=== PATIENT | female | born 1990 | race African-American/Black ===

== ENCOUNTER 2017-01-19 13:44 | Emergency (ER) | payer BC ==
[~2017-01-19] VITALS: Ht 170.2 cm; Wt 60.4 kg
[2017-01-19 13:57] VITALS: BP 123/65
[2017-01-19] MEDS ORDERED: IV NORMAL SALINE 500ML 500 ML IV ONE (14:45)
--- NOTE | 2017-01-19 14:45 | ED.ADGEN ---
Past History Past Medical History: No Pertinent History Past Surgical History: Spleenectomy Alcohol Use: Occasionally Drug Use: None Adult General Chief Complaint Chief Complaint Vomiting, generalized malaise HPI HPI Patient is a 26 year old female who presents with 4 days of generalized malaise , started vomiting yesterday, no blood or biliary vomitus. She reports chills without known fevers, cough, runny nose, sore throat. No ear pain, generalized abdominal pain, no dysuria or increased urinary frequency. Patient is unsure if she is . She has not attempted any symptom controlling medication today. Review of Systems Review of Systems Constitutional: Denies fever Eyes: Denies change in visual acuity, redness, or eye pain [] HENT: Per history of present illness Respiratory: Denies shortness of breath [] Cardiovascular: Denies chest pain GI: Denies bloody stools or diarrhea [] : Denies dysuria or hematuria [] Musculoskeletal: Per history of present illness Integument: Denies rash or skin lesions [] Neurologic: Denies headache, focal weakness or sensory changes [] Current Medications Current Medications Current Medications Medications (Trade) Dose Ordered Sig/Adalberto Start Time Stop Time Status Last Admin Dose Admin Iohexol (Omnipaque 350 Mg/ml) 75 ml 1X ONCE 01/19/17 17:30 01/19/17 17:31 DC Ketorolac Tromethamine (Toradol) 30 mg 1X ONCE 01/19/17 15:00 01/19/17 15:01 DC 01/19/17 15:10 30 MG Ondansetron HCl (Zofran) 4 mg 1X ONCE 01/19/17 15:00 01/19/17 15:01 DC 01/19/17 15:10 4 MG Ondansetron HCl 4 mg 4 mg 1X ONCE 01/19/17 16:00 01/19/17 16:01 DC 01/19/17 16:00 4 MG Sodium Chloride (Iv Sodium Chloride 0.9% 1,000ml) 1,000 ml @ 1,000 mls/hr 1X ONCE 01/19/17 16:00 01/19/17 17:00 DC 01/19/17 16:00 1,000 MLS/HR Sodium Chloride (Iv Sodium Chloride 0.9% 500ml) 500 ml @ 0 mls/hr 1X ONCE 01/19/17 14:45 01/19/17 14:47 DC 01/19/17 15:10 500 MLS/HR Allergies Allergies Allergies Coded Allergies Type Severity Reaction Last Updated Verified Penicillins Allergy Unknown 01/19/17 Yes Physical Exam Physical Exam Constitutional: Well developed, well nourished, ill appearing, non-toxic appearance. [] HENT: Normocephalic, atraumatic, bilateral external ears normal, oropharynx moist, no oral exudates, nose normal. Uvula rises midline, no edema, minimal erythema Eyes: PERRLA, EOMI, conjunctiva normal, no discharge. [] Neck: Normal range of motion, no tenderness, supple, no stridor. [] Cardiovascular:Heart rate regular with regular rhythm, no murmur [] Lungs & Thorax: Bilateral breath sounds clear to auscultation, no wheezes, crackles or rhonchi Abdomen: Bowel sounds normal, soft, fusion on focal tenderness to palpation without guarding or peritoneal signs, Skin: Warm, dry, no erythema, no rash. [] Back: No tenderness, no CVA tenderness. [] Extremities: No tenderness, no cyanosis, no clubbing, ROM intact, no edema. [] Neurologic: Alert and oriented X 3, normal motor function, normal sensory function, no focal deficits noted. [] Psychologic: Affect normal, judgement normal, mood normal. [] Current Patient Data Vital Signs Vital Signs Date Time Temp Pulse Resp B/P Pulse Ox O2 Delivery O2 Flow Rate FiO2 01/19/17 13:57 97.7 102 20 99 Room Air Lab Results Laboratory Tests Test 01/19/17 14:35 01/19/17 14:58 01/19/17 16:55 Urine Collection Type Unknown Urine Color Yellow Urine Clarity Cloudy Urine pH 7.0 Urine Specific [place] 1.020 Urine Protein 30 mg/dl (NEG-TRACE) Urine Glucose (UA) Negmg/dL (NEG) Urine Ketones (Stick) >=160mg/dL (NEG) Urine Blood Trace (NEG) Urine Nitrite Neg (NEG) Urine Bilirubin Small (NEG) Urine Urobilinogen Dipstick 1mg/dL (0.2 mg/dL) Urine Leukocyte Esterase Neg (NEG) POC Urine HCG, Qualitative hcg negative (Negative) White Blood Count 13.4x10^3/uL (4.0-11.0) H Red Blood Count 4.93x10^6/uL (3.50-5.40) Hemoglobin 14.8g/dL (12.0-15.5) Hematocrit 45.0% (36.0-47.0) Mean Corpuscular Volume 91fL (79-100) Mean Corpuscular Hemoglobin 30pg (25-35) Mean Corpuscular Hemoglobin Concent 33g/dL (31-37) Red Cell Distribution Width 12.9% (11.5-14.5) Platelet Count 397x10^3/uL (140-400) Neutrophils (%) (Auto) % (31-73) Lymphocytes (%) (Auto) % (24-48) Monocytes (%) (Auto) % (0-9) Eosinophils (%) (Auto) % (0-3) Basophils (%) (Auto) % (0-3) Neutrophils # (Auto) x10^3uL (1.8-7.7) Lymphocytes # (Auto) x10^3/uL (1.0-4.8) Monocytes # (Auto) x10^3/uL (0.0-1.1) Eosinophils # (Auto) x10^3/uL (0.0-0.7) Basophils # (Auto) x10^3/uL (0.0-0.2) Segmented Neutrophils % 96% (35-66) H Band Neutrophils % 1% (0-9) Lymphocytes % 1% (24-48) L Monocytes % 2% (0-10) Platelet Estimate Adequate (ADEQUATE) Sodium Level 137mmol/L (136-145) Potassium Level 3.8mmol/L (3.5-5.1) Chloride Level 101mmol/L (98-107) Carbon Dioxide Level 26mmol/L (21-32) Anion Gap 10 (6-14) Blood Urea Nitrogen 11mg/dL (7-20) Creatinine 0.8mg/dL (0.6-1.0) Estimated GFR (Cockcroft-Gault) 103.3 BUN/Creatinine Ratio 14 (6-20) Glucose Level 89mg/dL (70-99) Calcium Level 9.5mg/dL (8.5-10.1) Total Bilirubin 2.1mg/dL (0.2-1.0) H Aspartate Amino Transferase (AST) 19U/L (15-37) Alanine Aminotransferase (ALT) 26U/L (14-59) Alkaline Phosphatase 70U/L (46-116) Total Protein 8.5g/dL (6.4-8.2) H Albumin 4.5g/dL (3.4-5.0) Albumin/Globulin Ratio 1.1 (1.0-1.7) Lipase 101U/L (73-393) Influenza Type A (Rapid) Positive (NEGATIVE) Influenza Type B (Rapid) Negative (NEGATIVE) EKG EKG [] Radiology/Procedures Radiology/Procedures US abdomen: Limited abdomen ultrasound study of the right upper quadrant Clinical indications: Right upper quadrant pain nausea and vomiting for one day. Elevated bilirubin Findings: The pancreas is homogeneous without focal enlargement. The intrahepatic portion of the IVC is distended measuring up to 25 mm. The gallbladder is normal without gallstones and the gallbladder is not distended. Extrahepatic bile duct measures 3.7 mm in caliber which is normal. The liver is homogeneous and no mass is seen. The liver measures 13.1 cm in length which is normal. The length of the right kidney is 11.3 cm. No hydronephrosis or renal mass or perinephric fluid collection is seen on this side. IMPRESSION: Normal sonographic evaluation of the gallbladder and biliary tree. Dilation of the intrahepatic portion of the IVC. This may be related to patient's increased fluid status unless there is a history of right-sided heart failure. Course & Med Decision Making Course & Med Decision Making Pertinent Labs and Imaging studies reviewed. (See chart for details) Patient given IV fluids, Zofran and Toradol. Urine test negative, lab work pending, urinalysis shows dehydration without signs of infection. Pt still nausea, additional fluids and zofran given. US negative for cause. Flu added. CT abd/pelvis ordered. Still not able to tolerate fluids. Will admit Care transferred to Dr. Go pending CT abd/pelvis. Final Impression Final Impression Nausea and vomiting Influenza [] Problems: Dragon Disclaimer Dragon Disclaimer This electronic medical record was generated, in whole or in part, using a voice recognition dictation system. GLENNA GUNDERSON MD Jan 19, 2017 14:45
[2017-01-19] MEDS ORDERED: ONDANSETRON PF 4 MG/2 ML VIAL. IV ONE ×2 (15:00→16:00)
[2017-01-19] MEDS ORDERED: KETOROLAC 30 MG/ML VIAL. IV ONE (15:00)
[2017-01-19 15:10] LABS: HEMOGLOBIN 14.8 g/dL (12.0-15.5); MEAN CORPUSCULAR HEMOGLOBIN 30 pg (25-35); MEAN CORPUSCULAR HGB CONC 33 g/dL (31-37); MEAN CORPUSCULAR VOLUME 91 fL (79-100); PLATELET COUNT 397 x10^3/uL (140-400); RED BLOOD COUNT 4.93 x10^6/uL (3.50-5.40); RED CELL DISTRIBUTION WIDTH 12.9 % (11.5-14.5); WHITE BLOOD COUNT 13.4 x10^3/uL (4.0-11.0)
[2017-01-19 15:19] LABS: ALBUMIN 4.5 g/dL (3.4-5.0); ALBUMIN/GLOBULIN RATIO 1.1 (1.0-1.7); CALCIUM 9.5 mg/dL (8.5-10.1); CREATININE 0.8 mg/dL (0.6-1.0); GFR 103.3; POTASSIUM 3.8 mmol/L (3.5-5.1); TOTAL PROTEIN 8.5 g/dL (6.4-8.2)
[2017-01-19 15:20] LABS: TOTAL BILIRUBIN 2.1 mg/dL (0.2-1.0)
[2017-01-19 15:28] LABS: % BANDS 1 % (0-9); % LYMPHS 1 % (24-48); % MONOS 2 % (0-10); % SEGS 96 % (35-66); PLT ESTIMATE ADEQUATE (ADEQUATE)
[2017-01-19 15:42] LABS: CLARITY,URINE CLOUDY; COLOR,URINE YELLOW
[2017-01-19 15:43] LABS: BILIRUBIN,URINE SMALL (NEG); GLUCOSE,URINE NEG (NEG); NITRITE,URINE NEG (NEG); UROBILINOGEN,URINE 1 mg/dL (0.2 mg/dL)
[2017-01-19] MEDS ORDERED: IV NORMAL SALINE 1,000ML 1,000 ML IV ONE (16:00)
--- NOTE | 2017-01-19 16:47 | RAD ---
Limited abdomen ultrasound study of the right upper quadrant Clinical indications: Right upper quadrant pain nausea and vomiting for one day. Elevated bilirubin Findings: The pancreas is homogeneous without focal enlargement. The intrahepatic portion of the IVC is distended measuring up to 25 mm. The gallbladder is normal without gallstones and the gallbladder is not distended. Extrahepatic bile duct measures 3.7 mm in caliber which is normal. The liver is homogeneous and no mass is seen. The liver measures 13.1 cm in length which is normal. The length of the right kidney is 11.3 cm. No hydronephrosis or renal mass or perinephric fluid collection is seen on this side. IMPRESSION: Normal sonographic evaluation of the gallbladder and biliary tree. Dilation of the intrahepatic portion of the IVC. This may be related to patient's increased fluid status unless there is a history of right-sided heart failure.
--- NOTE | 2017-01-19 17:03 | ACF ---
Admission Criteria Forms VOMITING Clinical Indications for Admission to Inpatient Care ( Place 'X' for any and all applicable criteria): Admission is indicated for 1 or more of the following(1)(2)(3): [ ]I. Complete or partial gastrointestinal obstruction [ ]II. Vomiting due to significant metabolic derangement (eg, severe hypercalcemia, diabetic ketoacidosis) [ ]III. Other cause of vomiting requiring hospitalization (eg, poisoning, increased intracranial pressure) [X]IV. Inpatient admission required rather than observation care because of 1 or more of the following [ ]i) Hemodynamic instability [ ]ii) Vomiting that is severe or persistent indicated by 1 or more of the following 1) Numerous episodes of vomiting in past 24hours (eg, every 1 to 2 hours) 2) Suggests severe underlying cause or complication (eg , projectile, feculent, bilious, coffee ground, bloody) 3) Appropriate antiemetic treatment (eg, repeated oral or parenteral dosing) does not sufficiently reduce vomiting within 12 to 24 hours of treatment 4) Treatment regimen necessary to adequately control vomiting requires inpatient level of care (eg, not immediately available in outpatient setting) [ ]iii) Severe electrolyte abnormalities requiring inpatient care [ ]iv) Severe pain requiring acute inpatient management( Continuous or frequent (eg, every 2 to 4 hours) parental analgesics or analgesic regimen that can only be performed or initiated in inpatient setting) [ ]v) High fever or infection requiring inpatient admission as indicated by 1 or more of the following(7)(8): [ ]1) Appropriate outpatient or observation care antimicrobial treatment unavailable, not effective, or not feasible [ ]2) Documented bacteremia [ ]3) Temp >104.9 degrees F (40.5 degrees C) (oral) [ ]4) Temp >103.1 degrees F (39.5 C) (oral) or <96.8 degrees F (36 C) (rectal) that does not respond to all emergency treatment measures [ ]vi) Acute renal failure [ ]vii) IV fluid required rather than oral rehydration to replace significant on going losses (greater than 3 L/m2 per day) [ ]viii) Parenteral nutrition regimen that must be implemented on inpatient basis [X]ix) Other condition, treatment or monitoring requiring inpatient admission Extended stay beyond goal length of stay may be needed for(1)(4): [ ]a) Severe vomiting [ ]b) Persistent vomiting, vital sign changes, severe electrolyte imbalance , or diagnosed cause of vomiting that requires continued hospitalization (eg, gastrointestinal obstruction , increased intracranial pressure) [ ]c) Surgery to treat identified causes of vomiting (eg, bowel obstruction , intracranial process) [ ]d) Comorbid illness that requires inpatient care (eg, acute heart failure , renal failure) [ ]e) Need for inpatient endoscopy The original [facility] content created by elicit has been revised. The portions of the content which have been revised are identified through the use of italic text or in bold, and [facility] has neither reviewed nor approved the modified material. All other unmodified content is copyright [facility]. Please see references footnoted in the original [facility] edition 2016 Admission Criteria Met?: Yes ALFREDO JAMES Jan 19, 2017 17:02
[2017-01-19 17:24] LABS: INFLUENZA A PATIENT POSITIVE (NEGATIVE); INFLUENZA B PATIENT NEGATIVE (NEGATIVE)
[2017-01-19] MEDS ORDERED: IOHEXOL 350 MG/ML 50 ML VIAL. IV ONE (17:30)
--- NOTE | 2017-01-19 18:26 | RAD ---
PROCEDURE CT abdomen pelvis with contrast. HISTORY Abdominal pain and vomiting. TECHNIQUE Helical CT imaging of the abdomen and pelvis is performed after 75 cc Omnipaque 300 IV contrast. Oral contrast not given. PQRS: One or more the following individualized dose reduction techniques were utilized for the study: 1. Automated exposure control. 2. Adjustment of the mA and/or kV according to patient size. 3. Use of iterative reconstruction technique. COMPARISON None. FINDINGS Cardiac size normal. Lung bases clear. The spleen is not identified. Liver, gallbladder, pancreas, adrenal glands, and abdominal aortic caliber are normal. Kidneys enhance symmetrically, no hydronephrosis. 0.6 cm left upper pole renal cyst. There are multiple upper limits of normal in size mesenteric lymph nodes. Evaluation of bowel may be limited without oral contrast. Stomach unremarkable. There is no dilated small bowel. No colon wall thickening is appreciated. The appendix is normal. There is pelvic free fluid. Question arcuate uterus. There are bilateral functional cysts of the ovaries on the right measures 1.3 cm, on the left 2.5 cm. Urinary bladder is normal. No acute bone abnormality. IMPRESSION 1. Multiple upper limits of normal in size mesenteric lymph nodes. Mesenteric adenitis a consideration. 2. The spleen is not identified may be congenitally or surgically absent. 3. There is pelvic free fluid and there are small bilateral ovary functional cysts. Findings are probably physiologic. 4. The appendix is normal. Electronically signed by: Kirit Osman MD (Jan 19, 2017 18:24:44)
== END 2017-01-19 20:05 | disposition home or self-care (01) ==
LOC: ER 13:44
DX: J09.X2 Influenza due to identified novel influenza A virus with other respiratory manifestations (principal); R11.2 Nausea with vomiting, unspecified; E86.0 Dehydration; Z88.0 Allergy status to penicillin
CPT/HCPCS: 36415; 74177; 76705; 80053; 81003; 83690; 84703; 85007; 85027; 87804; 96361; 96374; 96375; 96376; 99285; J1885; J2405; J7040; 81025; J7030

== ENCOUNTER 2017-09-29 14:30 | Emergency (ER) | payer SELFPAY ==
[~2017-09-29] VITALS: Ht 170.2 cm; Wt 58.1 kg
[2017-09-29] MEDS ORDERED: IV NORMAL SALINE 1,000ML 1,000 ML IV SCH (14:52)
[2017-09-29] MEDS ORDERED: ONDANSETRON PF 4 MG/2 ML VIAL. IV ONE (15:15)
[2017-09-29 15:21] LABS: BASO # 0.1 x10^3/uL (0.0-0.2); BASO % 1 % (0-3); EOS % 0 % (0-3); HEMATOCRIT 37.4 % (36.0-47.0); HEMOGLOBIN 12.7 g/dL (12.0-15.5); LYMPH # 1.1 x10^3/uL (1.0-4.8); LYMPH % 6 % (24-48); MEAN CORPUSCULAR HEMOGLOBIN 31 pg (25-35); MEAN CORPUSCULAR HGB CONC 34 g/dL (31-37); MEAN CORPUSCULAR VOLUME 92 fL (79-100); MONO # 0.9 x10^3/uL (0.0-1.1); MONO % 5 % (0-9); NEUT # 16.6 x10^3uL (1.8-7.7); NEUT % 89 % (31-73); PLATELET COUNT 356 x10^3/uL (140-400); RED BLOOD COUNT 4.07 x10^6/uL (3.50-5.40); RED CELL DISTRIBUTION WIDTH 13.3 % (11.5-14.5); WHITE BLOOD COUNT 18.7 x10^3/uL (4.0-11.0)
[2017-09-29 15:31] LABS: PREG TEST PT QUAL NEGATIVE (NEG)
[2017-09-29 15:34] LABS: ALBUMIN 4.2 g/dL (3.4-5.0); CALCIUM 9.5 mg/dL (8.5-10.1); CREATININE 0.8 mg/dL (0.6-1.0); GFR 102.6; POTASSIUM 3.2 mmol/L (3.5-5.1); TOTAL PROTEIN 8.3 g/dL (6.4-8.2)
[2017-09-29] MEDS ORDERED: IOHEXOL 240 MG/ML 50ML VIAL. ONE (15:35)
[2017-09-29] MEDS ORDERED: CONTRAST GIVEN MC PRN (15:45)
[2017-09-29] MEDS ORDERED: IOHEXOL 300 MG/ML 75 ML VIAL. IV ONE (16:00)
[2017-09-29 16:56] LABS: BARBITURATES NEG (NEG); BENZODIAZEPINES NEG (NEG); CANNABINOIDS POS (NEG); COCAINE NEG (NEG); METHADONE NEG (NEG); OPIATES NEG (NEG); PHENCYCLIDINE NEG (NEG)
[2017-09-29 16:57] LABS: AMPHETAMINE/METHAMPHETAMINE NEG (NEG)
--- NOTE | 2017-09-29 17:01 | RAD ---
CT scan of the abdomen and pelvis with contrast 09/29/2017 Clinical history: Diffuse abdominal pain. Technique: After the oral and intravenous administration contrast, contiguous, 5 mm axial sections were obtained through the abdomen and pelvis. 58 cc of Omnipaque 300 were administered intravenously during this examination. One or more of the following individualized dose reduction techniques were utilized for this study: 1. Automated exposure control. 2. Adjustment of the mA and/or kV according to patient size. 3. Use of iterative reconstruction technique. Findings: Comparison study is dated 01/19/2017. Images through the lung bases are within normal limits. The liver, pancreas, adrenal glands and kidneys are within normal limits. The spleen is not visualized. It may be congenitally or surgically absent. The abdominal aorta tapers normally. The gallbladder is contracted. No free fluid or free air is seen within the abdomen. There is no evidence of bowel obstruction. Air and stool is seen throughout the colon. The cecum extends into the pelvis. The appendix is partially visualized and is within normal limits. Images through the pelvis demonstrate the urinary bladder distended with urine. The uterus is within normal limits. Follicles are seen involving both ovaries. Small amount of free fluid is seen within the pelvis. Minimal S shaped curvature of the thoracolumbar spine is seen. Impression: Small amount of free fluid is seen within the pelvis. No additional acute abnormality is seen.
[2017-09-29 17:04] LABS: COLOR,URINE AMBER
[2017-09-29 17:05] LABS: BACTERIA,URINE FEW /HPF (0-FEW); BILIRUBIN,URINE NEG (NEG); CLARITY,URINE HAZY; NITRITE,URINE POS (NEG); SQUAMOUS EPITHELIAL CELL,UR MANY /LPF
[2017-09-29] MEDS ORDERED: cefTRIAXone SODIUM 1 GM VIAL IV ONE (17:40)
[2017-09-29] MEDS ORDERED: IV NORMAL SALINE 50ML 50 ML ONE (17:40)
[2017-09-29] MEDS: KETOROLAC 30 MG/ML VIAL. IV ONE ×2 (17:45→17:47)
[2017-09-29] MEDS ORDERED: cefTRIAXone IM 1 GM VIAL IM ONE (18:15)
[2017-09-29] MEDS ORDERED: KETOROLAC 60 MG/2 ML VIAL. IM ONE (18:15)
[2017-09-29] MEDS ORDERED: ACET-704 PO (18:20)
[2017-09-29] MEDS ORDERED: ONDA4TAB10 PO (18:20)
[2017-09-29] MEDS ORDERED: CIPR250T30 PO (18:20)
--- NOTE | 2017-09-29 18:20 | PHYS DOC ---
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 Patient denies radiation of her pain and rated her pain 9/10. Patient complaining of nausea and states she had 2 episodes of vomiting today. Patient states she did not have any bowel movement today but yesterday had 2 normal bowel movement without diarrhea. Patient denies urinary symptom, fever and chills, abdominal distention, vaginal bleeding or discharge. Patient was seen by a clinic today and sent to ER for more evaluation. Review of Systems Review of Systems Constitutional: Denies fever or chills [] Eyes: Denies change in visual acuity, redness, or eye pain [] HENT: Denies nasal congestion or sore throat [] Respiratory: Denies cough or shortness of breath [] Cardiovascular: No additional information not addressed in HPI [] GI: Reports abdominal pain, nausea, vomiting : Denies dysuria or hematuria [] Musculoskeletal: Denies back pain or joint pain [] Integument: Denies rash or skin lesions [] Neurologic: Denies headache, focal weakness or sensory changes [] Endocrine: Denies polyuria or polydipsia [] All other systems were reviewed and found to be within normal limits, except as documented in this note. Current Medications Current Medications Current Medications Medications (Trade) Dose Ordered Sig/Adalberto Start Time Stop Time Status Last Admin Dose Admin Ceftriaxone Sodium 1 gm/ Sodium Chloride 50 ml @ 100 mls/hr 1X ONCE 09/29/17 17:45 09/29/17 18:14 Ceftriaxone Sodium (Rocephin Im) 1 gm 1X ONCE 09/29/17 18:15 09/29/17 18:16 Ceftriaxone Sodium (Rocephin) 1 gm STK-MED ONCE 09/29/17 17:40 09/29/17 17:41 DC Fentanyl Citrate (Fentanyl 2ml Vial) 50 mcg 1X ONCE 09/29/17 15:50 09/29/17 15:51 DC 09/29/17 16:15 50 MCG Info (Do NOT chart on this entry -- for MONITORING) 1 each PRN DAILY PRN 09/29/17 15:45 10/01/17 15:44 Iohexol (Omnipaque 240 Mg/ml) 50 ml STK-MED ONCE 09/29/17 15:35 09/29/17 15:36 DC Iohexol (Omnipaque 300 Mg/ml) 75 ml 1X ONCE 09/29/17 16:00 09/29/17 16:01 DC 09/29/17 16:39 75 ML Ketorolac Tromethamine (Toradol) 60 mg 1X ONCE 09/29/17 18:15 09/29/17 18:16 Ondansetron HCl (Zofran) 4 mg 1X ONCE 09/29/17 15:15 09/29/17 15:16 DC 09/29/17 15:07 4 MG Sodium Chloride 50 ml @ As Directed STK-MED ONCE 09/29/17 17:40 09/29/17 17:41 DC Allergies Allergies Allergies Coded Allergies Type Severity Reaction Last Updated Verified Penicillins Allergy Unknown 01/19/17 Yes Physical Exam Physical Exam Constitutional: Moderate distress, non-toxic appearance, very anxious HENT: Normocephalic, atraumatic, bilateral external ears normal, oropharynx moist, no oral exudates, nose normal. [] Eyes: PERRLA, EOMI, conjunctiva normal, no discharge. [] Neck: Normal range of motion, no tenderness, supple, no stridor. [] Cardiovascular:Heart rate regular rhythm, no murmur [] Lungs & Thorax: Bilateral breath sounds clear to auscultation [] Abdomen: Bowel sounds normal, soft, no tenderness, guarding ,no masses, no pulsatile masses. [] Skin: Warm, dry, no erythema, no rash. [] Back: No tenderness, no CVA tenderness. [] Extremities: No tenderness, no cyanosis, no clubbing, ROM intact, no edema. [] Neurologic: Alert and oriented X 3, normal motor function, normal sensory function, no focal deficits noted. [] Psychologic: Affect normal, judgement normal, anxious Current Patient Data Vital Signs Vital Signs Date Time Temp Pulse Resp B/P (MAP) Pulse Ox O2 Delivery O2 Flow Rate FiO2 09/29/17 16:15 16 100 Room Air Lab Results Laboratory Tests Test 09/29/17 15:09 09/29/17 15:46 09/29/17 17:09 White Blood Count 18.7 x10^3/uL (4.0-11.0) H Red Blood Count 4.07 x10^6/uL (3.50-5.40) Hemoglobin 12.7 g/dL (12.0-15.5) Hematocrit 37.4 % (36.0-47.0) Mean Corpuscular Volume 92 fL (79-100) Mean Corpuscular Hemoglobin 31 pg (25-35) Mean Corpuscular Hemoglobin Concent 34 g/dL (31-37) Red Cell Distribution Width 13.3 % (11.5-14.5) Platelet Count 356 x10^3/uL (140-400) Neutrophils (%) (Auto) 89 % (31-73) H Lymphocytes (%) (Auto) 6 % (24-48) L Monocytes (%) (Auto) 5 % (0-9) Eosinophils (%) (Auto) 0 % (0-3) Basophils (%) (Auto) 1 % (0-3) Neutrophils # (Auto) 16.6 x10^3uL (1.8-7.7) H Lymphocytes # (Auto) 1.1 x10^3/uL (1.0-4.8) Monocytes # (Auto) 0.9 x10^3/uL (0.0-1.1) Eosinophils # (Auto) 0.0 x10^3/uL (0.0-0.7) Basophils # (Auto) 0.1 x10^3/uL (0.0-0.2) Platelet Estimate Pending Sodium Level 139 mmol/L (136-145) Potassium Level 3.2 mmol/L (3.5-5.1) L Chloride Level 102 mmol/L (98-107) Carbon Dioxide Level 25 mmol/L (21-32) Anion Gap 12 (6-14) Blood Urea Nitrogen 7 mg/dL (7-20) Creatinine 0.8 mg/dL (0.6-1.0) Estimated GFR (Cockcroft-Gault) 102.6 BUN/Creatinine Ratio 9 (6-20) Glucose Level 75 mg/dL (70-99) Calcium Level 9.5 mg/dL (8.5-10.1) Total Bilirubin 2.0 mg/dL (0.2-1.0) H Aspartate Amino Transferase (AST) 19 U/L (15-37) Alanine Aminotransferase (ALT) 30 U/L (14-59) Alkaline Phosphatase 61 U/L (46-116) Total Protein 8.3 g/dL (6.4-8.2) H Albumin 4.2 g/dL (3.4-5.0) Albumin/Globulin Ratio 1.0 (1.0-1.7) Lipase 52 U/L (73-393) L Serum Test, Qualitative Negative (NEG) Urine Collection Type Unknown Urine Color Padmini Urine Clarity Hazy Urine pH 6.5 Urine Specific [place] 1.015 Urine Protein (NEG-TRACE) Urine Glucose (UA) mg/dL (NEG) Urine Ketones (Stick) mg/dL (NEG) Urine Blood Mod (NEG) Urine Nitrite Pos (NEG) Urine Bilirubin Neg (NEG) Urine Urobilinogen Dipstick mg/dL (0.2 mg/dL) Urine Leukocyte Esterase Neg (NEG) Urine RBC 3-5 /HPF (0-2) Urine WBC 5-10 /HPF (0-4) Urine Squamous Epithelial Cells Many /LPF Urine Bacteria Few /HPF (0-FEW) Urine Mucus Marked /LPF Urine Opiates Screen Neg (NEG) Urine Methadone Screen Neg (NEG) Urine Barbiturates Neg (NEG) Urine Phencyclidine Screen Neg (NEG) Urine Amphetamine/Methamphetamine Neg (NEG) Urine Benzodiazepines Screen Neg (NEG) Urine Cocaine Screen Neg (NEG) Urine Cannabinoids Screen Pos (NEG) Urine Ethyl Alcohol Neg (NEG) POC Urine HCG, Qualitative hcg negative (Negative) EKG EKG [] Radiology/Procedures Radiology/Procedures [ CT abdomen and pelvis did not show any acute finding] Course & Med Decision Making Course & Med Decision Making Pertinent Labs and Imaging studies reviewed. (See chart for details) Evaluation of patient in ER showed 27-year-old female patient with history of previous abdominal surgery with complaining of severe abdominal pain since yesterday. Patient was very anxious at arrival to ER. Patient had stable vital signs with abdominal guarding. Patient had white count of 18,000 with history of a splenectomy. CT of abdomen and pelvis was unremarkable. UA showed UTI. Patient treated with fentanyl but asking for more pain medication. Patient felt better with Toradol. Patient did not want hospitalization for pain management and wants to go home. Plan discharge patient home with diagnoses of abdominal pain and UTI. [] Dragon Disclaimer Dragon Disclaimer This electronic medical record was generated, in whole or in part, using a voice recognition dictation system. Departure Departure: Impression: Primary Impression: Abdominal pain Additional Impressions: Urinary tract infection Nausea and vomiting Leukocytosis Disposition: HOME, SELF-CARE (At 1817) Condition: IMPROVED Referrals: PCP,SHELLY (PCP) Patient Instructions: Abdominal Pain, Nausea and Vomiting, Urinary Tract Infection Additional Instructions: Follow-up with your primary care physician in 2-3 days if not getting better Take liquids diet today Scripts Acetaminophen With Codeine (TYLENOL WITH CODEINE #3 TABLET) 1 Each Tablet 1 TAB PO Q4-6HRS, #12 TAB Prov: NICOLE MEJIAS MD 09/29/17 Ondansetron (ZOFRAN ODT) 4 Mg Tab.rapdis 4 MG PO TID Y for NAUSEA, #14 Prov: NICOLE MEJIAS MD 09/29/17 Ciprofloxacin Hcl (CIPRO) 250 Mg Tablet 1 TAB PO BID, #14 TAB Prov: NICOLE MEJIAS MD 09/29/17 Problem Qualifiers NICOLE MEJIAS MD Sep 29, 2017 18:20
[2017-09-29 18:55] VITALS: BP 108/69
[2017-09-29 20:47] LABS: % BASOS 3 % (0-3); % LYMPHS 2 % (24-48); % MONOS 3 % (0-10); % SEGS 88 % (35-66)
[2017-09-29 21:04] LABS: PLT ESTIMATE ADEQUATE (ADEQUATE)
[2017-09-29 21:08] LABS: BURR CELLS FEW; TARGET CELLS OCC
[2017-09-29 21:15] LABS: % ATYL 4 % (0-0)
== END 2017-09-29 18:55 | disposition home or self-care (01) ==
LOC: ER 14:30
DX: N39.0 Urinary tract infection, site not specified (principal); D72.829 Elevated white blood cell count, unspecified; Z90.81 Acquired absence of spleen; Z88.0 Allergy status to penicillin
CPT/HCPCS: 36415; 74177; 80053; 80307; 81001; 81025; 83690; 84703; 85007; 85025; 87086; 96361; 96372; 96374; 96375; 99285; J0696; J1885; J2405; J3010; Q9967; G0479; J7030